=== PATIENT | female | born 1995 | race Caucasian/White ===

== ENCOUNTER 2019-03-27 07:49 | Day surgery (SDC) | payer BC ==
[~2019-03-27 07:49] MED LIST: Lactated Ringers 1,000 ML IV SCH; Sodium Chloride 0.9% 10 ML SDV IV PRN; Sodium Chloride 0.9% 10 ML Syringe FLUSH PRN; Sodium Chloride 0.9% 2.5 ML Syringe FLUSH PRN; ceFAZolin 1 GM in Premix Bag 1 BAG IV ONE
[2019-03-27] MEDS ORDERED: fentaNYL 100 MCG/2 ML SDV ONE (08:21)
[2019-03-27] MEDS ORDERED: Midazolam 1 MG/ML 2 ML SDV ONE (08:21)
[2019-03-27] MEDS ORDERED: Lidocaine 2% 5 ML SDV ONE (08:21)
[2019-03-27] MEDS ORDERED: Propofol 200 MG/20 ML SDV ONE (08:21)
--- NOTE | 2019-03-27 08:40 | PCM.PREANE ---
Preanesthetic Assessment - Anesthesia/Transfusion/Family Hx Anesthesia History: No Prior Anesthesia Family History of Anesthesia Reaction: No Transfusion History: No Prior Transfusion(s) Intubation History: Unknown - Review of Systems General: No Symptoms Pulmonary: No Symptoms Cardiovascular: No Symptoms Gastrointestinal: No Symptoms Neurological: No Symptoms Other: Reports: None - Physical Assessment O2 Sat by Pulse Oximetry: 99 Respiratory Rate: 16 Vital Signs: Last Vital Signs Temp 36.2 C 03/27/19 08:04 Pulse 97 03/27/19 08:04 Resp 16 03/27/19 08:04 BP 128/78 03/27/19 08:04 Pulse Ox 99 03/27/19 08:04 Height: 5 ft 4 in Weight: 73.028 kg ASA Class: 1 Mental Status: Alert & Oriented x3 Airway Class: Mallampati = 1 Dentition: Reports: Normal Dentition Thyro-Mental Finger Breadths: 3 Mouth Opening Finger Breadths: 2 ROM/Head Extension: Full Lungs: Clear to Auscultation, Normal Respiratory Effort Cardiovascular: Regular Rate, Regular Rhythm - Lab Values: Laboratory Last Values Urine HCG, Qual NEGATIVE (NEGATIVE) 03/27/19 08:00 - Allergies Allergies/Adverse Reactions: Allergies Allergy/AdvReac Type Severity Reaction Status Date / Time No Known Allergies Allergy Verified 03/25/19 09:22 - Blood Blood Available: No - Anesthesia Plan Pre-Op Medication Ordered: None - Acknowledgements Anesthesia Type Planned: MAC Pt an Appropriate Candidate for the Planned Anesthesia: Yes Alternatives and Risks of Anesthesia Discussed w Pt/Guardian: Yes Pt/Guardian Understands and Agrees with Anesthesia Plan: Yes PreAnesthesia Questionnaire - Past Health History Medical/Surgical History: Denies Medical/Surgical History HEENT History: Reports: None Cardiovascular History: Reports: None Respiratory History: Reports: None Gastrointestinal History: Reports: Other (See Below) Other Gastrointestinal History: occasional heartburn Genitourinary History: Reports: None Musculoskeletal History: Reports: None Neurological History: Reports: None Psychiatric History: Reports: None Endocrine/Metabolic History: Reports: None Hematologic History: Reports: None Immunologic History: Reports: None Oncologic (Cancer) History: Reports: None Dermatologic History: Reports: Eczema - Past Surgical History Head Surgeries/Procedures: Reports: None HEENT Surgical History: Reports: None Cardiovascular Surgical History: Reports: None Respiratory Surgical History: Reports: None GI Surgical History: Reports: None Female Surgical History: Reports: None Endocrine Surgical History: Reports: None Neurological Surgical History: Reports: None Musculoskeletal Surgical History: Reports: None Oncologic Surgical History: Reports: None Dermatological Surgical History: Reports: None - SUBSTANCE USE Smoking Status *Q: Never Smoker Recreational Drug Use History: No - HOME MEDS Home Medications: Home Meds . [No Known Home Meds] 03/25/19 [History] - CURRENT (IN HOUSE) MEDS Current Meds: Current Medications Lactated Ringer's (Ringers, Lactated) 1,000 mls @ 125 mls/hr IV ASDIRECTED TARI Last Admin: 03/27/19 08:08 Dose: 125 mls/hr Sodium Chloride (Saline Flush) 10 ml FLUSH ASDIRECTED PRN PRN Reason: Keep Vein Open Sodium Chloride (Saline Flush) 2.5 ml FLUSH ASDIRECTED PRN PRN Reason: Keep Vein Open Sodium Chloride (Normal Saline) 10 ml IV ASDIRECTED PRN PRN Reason: IV Use Discontinued Medications Fentanyl (Sublimaze) Confirm Administered Dose 100 mcg .ROUTE .STK-MED ONE Stop: 03/27/19 08:22 Cefazolin Sodium/Dextrose 1 gm (/ Premix) 50 mls @ 100 mls/hr IV ONETIME ONE Stop: 03/26/19 12:23 Lidocaine (Xylocaine-Mpf 2%) Confirm Administered Dose 5 ml .ROUTE .STK-MED ONE Stop: 03/27/19 08:22 Midazolam HCl (Versed 1 Mg/Ml) Confirm Administered Dose 2 mg .ROUTE .STK-MED ONE Stop: 03/27/19 08:22 Propofol (Diprivan 20 Ml) Confirm Administered Dose 400 mg .ROUTE .STK-MED ONE Stop: 03/27/19 08:22
[2019-03-27] MEDS ORDERED: ceFAZolin 1 GM Vial ONE (09:10)
[2019-03-27] MEDS ORDERED: Bupivacaine 0.5% 30 ML SDV ONE (09:12)
[2019-03-27] MEDS ORDERED: Octyl 2-Cyanoacrylate 1 Tube ONE (09:36)
--- NOTE | 2019-03-27 09:58 | PCM.OPNOTE ---
- General Post-Op/Procedure Note Date of Surgery/Procedure: 03/27/19 Operative Procedure(s): Excision let scalp cyst Findings: 1 cm sebaceous cyst Pre Op Diagnosis: Left scalp lesion Post-Op Diagnosis: left scalp sebaceous cyst Anesthesia Technique: MAC Primary Surgeon: Mirlande Mccullough Condition: Good
--- NOTE | 2019-03-27 10:24 | PCM.POSTAN ---
POST ANESTHESIA ASSESSMENT - MENTAL STATUS Mental Status: Alert, Oriented - RESPIRATORY Respiratory Status: Respiratory Rate WNL, Airway Patent, O2 Saturation Stable - CARDIOVASCULAR CV Status: Pulse Rate WNL, Blood Pressure Stable - GASTROINTESTINAL GI Status: No Symptoms - PAIN Pain Score: 0 - POST OP HYDRATION Hydration Status: Adequate & Stable - OBSERVATIONS Free Text/Narrative:: No anesthesia problems, patient skipped recovery room stage of postoperative care
--- NOTE | 2019-03-27 11:04 | OR ---
SURGEON: MIRLANDE MCCULLOUGH MD DATE OF PROCEDURE: 03/27/2019 PREOPERATIVE DIAGNOSIS: Left scalp lesion. POSTOPERATIVE DIAGNOSIS: Left scalp sebaceous cyst. PROCEDURE PERFORMED: Excision of left scalp lesion. PRIMARY SURGEON: Mirlande Mccullough MD. ANESTHESIA: MAC. FLUIDS: See anesthesia record. ESTIMATED BLOOD LOSS: 5 mL. FINDINGS: 1 cm slightly lobulated appearing sebaceous cyst in the left parietal scalp area. COMPLICATIONS: None. INDICATIONS: The patient is a 23-year-old female who presents with a scalp lesion. I explained the need for excision. I explained the procedure, expected perioperative course, and risks including bleeding, infection, and damage to surrounding structures. The patient verbalized understanding and wishes to proceed. PROCEDURE IN DETAIL: The patient was brought into the OR and placed in a beach chair position. A time-out was completed verifying the patient's name, age, date of , allergies, and procedure to be performed. Monitored anesthesia care was induced. The left parietal scalp was prepped and draped in usual standard fashion. I anesthetized the area overlying the left scalp lesion with 0.25% Marcaine plain. A 15 blade was used to make a 2 cm incision over the top of this lesion. Cautery was used to dissect down to the subcuticular area. I immediately encountered what appeared to be a sebaceous cyst. Using a combination of sharp dissection and electrocautery, I dissected the cyst free from the surrounding structures. It was removed and sent to Pathology, labeled as left scalp sebaceous cyst. It measured 1 cm in diameter. Hemostasis was achieved in the wound bed using electrocautery. The wound was then irrigated with normal saline. The wound was closed with a combination of interrupted Prolene sutures as well as 1 horizontal mattress suture. Dermabond was placed over the incision and the procedure terminated. The patient tolerated the procedure well and was transferred to the PACU in stable condition. All counts were complete and correct at the end of the case. SUMEET / HONEY /[id number]
== END 2019-03-27 11:04 | disposition home or self-care (01) ==
LOC: MW.SDS 07:49
PROVIDERS: ATTEND Surgery
DX: L72.3 Sebaceous cyst (principal)
CPT/HCPCS: 11421; 81025; A9270; J0690; J2001; J2250; J2704; J3010; J3490; J7120; 88305